=== PATIENT | male | born 1960 | race American Indian/Alaskan Native ===

== ENCOUNTER 2017-06-06 19:30 | Inpatient (IN) | payer BC ==
[2017-06-06] MEDS ORDERED: ASPIRIN ONE (19:41)
[2017-06-06] MEDS ORDERED: ZOFRAN ONE (19:41)
[2017-06-06] MEDS ORDERED: LOPRESSOR IV ONE ×2 (19:41→19:48)
[2017-06-06] MEDS ORDERED: MORPHINE ONE (19:41)
--- NOTE | 2017-06-06 19:41 | Emergency Department Report ---
ED Chest Pain HPI - General Stated Complaint: CHEST PAIN Time Seen by Provider: 06/06/17 19:38 - History of Present Illness Initial Comments: This is a 57 year-old male presents to the emergency department , being driven up to the ambulance bay, with a complaint of left-sided chest pain that started about 5 minutes prior to presentation. He did not take anything for her symptoms on presentation. His past medical history is significant for hypertension and tobacco abuse. He denies any illicit drug use. He has a primary care physician. No recent travel or sick contacts at home. He complains of some associated shortness of breath, nausea and vomiting. - Related Data Home Medications Medication Instructions Recorded Confirmed Last Taken Valsartan/Hydrochlorothiazide 1 each PO QDAY 06/06/17 06/06/17 06/06/17 [Valsartan-Hctz 320-25 mg Tab] Allergies Allergy/AdvReac Type Severity Reaction Status Date / Time No Known Allergies Allergy Unverified 04/08/13 07:52 Heart Score - HEART Score History: Highly suspicious EKG: Normal Age: 45-65 Risk factors: 1-2 risk factors Troponin: < normal limit HEART Score: 4 - Critical Actions Critical Actions: 4-6 pts:12-16.6% risk of adverse cardiac event. Should be admitted ED Review of Systems ROS: Stated complaint: CHEST PAIN Other details as noted in HPI Comment: All other systems reviewed and negative Constitutional: denies: chills, fever Eyes: denies: eye pain, eye discharge, vision change ENT: denies: ear pain, throat pain Respiratory: shortness of breath. denies: cough Cardiovascular: chest pain. denies: palpitations Gastrointestinal: nausea, vomiting. denies: abdominal pain Genitourinary: denies: urgency, dysuria Musculoskeletal: denies: back pain, joint swelling, arthralgia Skin: denies: rash, lesions Neurological: denies: headache, weakness, paresthesias ED Past Medical Hx - Past Medical History Hx Hypertension: Yes - Surgical History Additional Surgical History: right arm surgery - Social History Smoking Status: Current Every Day Smoker Substance Use Type: Alcohol - Medications Home Medications: Home Medications Medication Instructions Recorded Confirmed Last Taken Type Valsartan/Hydrochlorothiazide 1 each PO QDAY 06/06/17 06/06/17 06/06/17 History [Valsartan-Hctz 320-25 mg Tab] ED Physical Exam - Other Other exam information: GENERAL: The patient is in a moderate amount of pain but otherwise awake and alert. Well developed. Well nourished. HENT: Normocephalic. Atraumatic. Patient has moist mucous membranes. EYES: Extraocular motions are intact. Pupils equal reactive to light bilaterally. NECK: Supple. Skin is warm and dry. CHEST/LUNGS: Clear to auscultation. There is no respiratory distress noted. Chest pain is not reproducible to palpation of chest wall. HEART/CARDIOVASCULAR: Regular. There is no tachycardia. There is no gallop rub or murmur. ABDOMEN: Abdomen is soft, nontender. Patient has normal bowel sounds. There is no abdominal distention. SKIN: Skin is warm and dry. NEURO: The patient is awake, alert, and oriented. The patient is cooperative. The patient has no focal neurologic deficits. The patient has normal speech. MUSCULOSKELETAL: There is no tenderness or deformity. There is no limitation range of motion. There is no evidence of acute injury. ED Course Vital Signs 06/06/17 06/06/17 06/06/17 19:35 19:50 20:12 Temperature Pulse Rate 122 H 122 H 83 Respiratory 20 14 Rate Blood Pressure 207/120 207/120 Blood Pressure 185/119 [Right] O2 Sat by Pulse 99 99 Oximetry 06/06/17 06/06/17 06/06/17 20:30 20:50 20:55 Temperature Pulse Rate 91 H 82 86 Respiratory 19 Rate Blood Pressure 173/116 170/122 Blood Pressure 165/120 [Right] O2 Sat by Pulse 100 Oximetry 06/06/17 06/06/17 06/06/17 21:00 21:11 21:20 Temperature Pulse Rate 84 80 77 Respiratory 12 15 Rate Blood Pressure 157/108 Blood Pressure 147/114 130/90 [Right] O2 Sat by Pulse 99 100 Oximetry 06/06/17 06/06/17 21:41 22:53 Temperature 98.3 F Pulse Rate 79 82 Respiratory 14 20 Rate Blood Pressure Blood Pressure 112/79 126/82 [Right] O2 Sat by Pulse 100 99 Oximetry - Consultations Consultation #1: I spoke to the copier technician on-call, Dr. June, who was gracious enough to look at the original EKG and did not feel that it met criteria for STEMI and did not need any urgent heart catheterization. 06/06/17 19:40 BRIANNA score - Brianna Score Age > 65: (0) No Aspirin use within the Past 7 Days: (0) No 3 or more CAD Risk Factors: (0) No 2 or more Angina events in past 24 hrs: (0) No Known CAD with more than 50% Stenosis: (0) No Elevated Cardiac Markers: (0) No ST Deviation Greater than 0.5mm: (0) No BRIANNA Score: 0 ED Medical Decision Making - Lab Data Result diagrams: 06/06/17 19:30 06/06/17 19:30 - EKG Data -: EKG Interpreted by Me EKG shows normal: sinus rhythm, axis, intervals, QRS complexes (LVH), ST-T waves (nonspecific ST-T waves) Rate: tachycardia (102 bpm) - EKG Data When compared to previous EKG there are: previous EKG unavailable Interpretation: LVH (with mild tachycardia) - Radiology Data Radiology results: image reviewed interpreted by me: Chest x-ray does not show any acute process. There are no pleural effusions, obvious pneumonia and there is no pneumothorax. - Medical Decision Making This patient presented with acute left-sided chest pain. He was given morphine , aspirin, Zofran and Lopressor. His blood pressure came down to a more reasonable level but was still elevated. His chest pain later came back and he required a sublingual nitroglycerin but that did not help. The pain appears to be intermittent as there are times where he appears to resting comfortably and other times where he is complaining of increased pain. His EKG showed some LVH with mild tachycardia but otherwise no signs of ST elevation WI or dysrhythmia. Labs have been mostly unremarkable including negative troponin and a negative d-dimer. He will certainly need serial troponins, further evaluation and probable cardio consultation. He has been accepted for admission by the hospitalist, Dr. De. - Differential Diagnosis WI, PE, pneumonia, costochondritis, GERD Critical Care Time: No Critical care attestation.: If time is entered above; I have spent that time in minutes in the direct care of this critically ill patient, excluding procedure time. ED Disposition Clinical Impression: Acute chest pain, Ruled out for myocardial infarction, Hypertensive urgency Disposition: OP ADMIT IP TO THIS HOSP Is pt being admited?: Yes Condition: Stable Time of Disposition: 00:49
[2017-06-06 19:45] LABS: Hematocrit 41.1 % (35.5-45.6); Hemoglobin 13.6 gm/dl (11.8-15.2); Mean Corpuscular HGB Conc 33 % (32-34); Mean Corpuscular Hemoglobin 32 pg (28-32); Mean Corpuscular Volume 96 fl (84-94); Platelet Count 186 K/mm3 (140-440); Red Blood Count 4.28 M/mm3 (3.65-5.03); White Blood Count 8.5 K/mm3 (4.5-11.0)
[2017-06-06] MEDS ORDERED: MORPHINE IV ONE (19:48)
[2017-06-06] MEDS ORDERED: ASPIRIN PO ONE (19:48)
[2017-06-06] MEDS ORDERED: ZOFRAN IV ONE ×2 (19:48→20:07)
[2017-06-06 19:57] LABS: Anion Gap 20 mmol/L; BUN/Creatinine Ratio 16; Blood Urea Nitrogen 14 mg/dL (9-20); Calcium 8.7 mg/dL (8.4-10.2); Carbon Dioxide 21 mmol/L (22-30); Glucose 107 mg/dL (75-100); Potassium 3.9 mmol/L (3.6-5.0); Sodium 139 mmol/L (137-145)
[2017-06-06 20:02] LABS: INR 0.86 (0.87-1.13); Partial Thromboplastin Time 26.2 Sec. (24.2-36.6)
[2017-06-06] MEDS: NITROSTAT SL PRN ×3 (20:50→21:00)
[2017-06-06 21:08] LABS: Blastocytes % (Manual) 0 %; RBC Morphology Normal
[2017-06-06 21:09] LABS: Diff Status Complete
--- NOTE | 2017-06-06 22:11 | History and Physical Report ---
History of Present Illness Date of examination: 06/06/17 History of present illness: 57-year-old man with history of hypertension comes emergency room with complaints of substernal pain which started last night. He describes as a sharp pain, intermittent every 5 minutes, intensity 5/10, no radiation, he cannot identify exacerbating or relieving factors. denies shortness of breath, nausea vomiting, diaphoresis or palpitation. Had a stress test in January which was negative Review Of Systems: Constitutional: no weight loss Ears, eyes, nose, mouth and throat: no nasal congestion, no nasal discharge, no sinus pressure, blurry vision, diplopia Neck: No neck pain or rigidity. Cardiovascular no , orthopnea, palpitations Respiratory: No cough Gastrointestinal: no abdominal pain, hematochezia Genitourinary : no dysuria, frequency , hematuria Musculoskeletal: no muscle ache Integumentary: no rash, no pruritis Neurological: no parathesias, focal weakness Endocrine: no cold or heat intolerance, no polyuria or polydipsia Hematologic/Lymphatic: no easy bruising, no easy bleeding, no gland swelling Allergic/Immunologic: no urticaria, no angioedema. PAST SURGICAL HISTORY: None SOCIAL HISTORY:Social alcohol, tobacco , no drug FAMILY HISTORY: Hypertension Medications and Allergies Allergies Allergy/AdvReac Type Severity Reaction Status Date / Time No Known Allergies Allergy Unverified 04/08/13 07:52 Home Medications Medication Instructions Recorded Confirmed Last Taken Type Valsartan/Hydrochlorothiazide 1 each PO QDAY 06/06/17 06/06/17 06/06/17 History [Valsartan-Hctz 320-25 mg Tab] Active Meds: Active Medications Nitroglycerin (Nitrostat) 0.4 mg SL .Q5MIN PRN PRN Reason: Chest Pain Last Admin: 06/06/17 21:00 Dose: 0.4 mg Exam - Physical Exam Narrative exam: Gen. appearance: Patient lying in bed in no acute distress HEENT: Normocephalic/atraumatic, pupils equal round reactive to light, extra alkaline movement intact, no scleral icterus, no JVD or thyromegaly or nodule, neck is supple, mucous membrane moist, no erythema or exudate Heart: S1-S2, regular rate and rhythm Lungs: Clear to auscultation bilateral breathing comfortable Abdomen: Positive bowel sounds, nontender, nondistended, no organomegaly Extremities: No edema, cyanosis, clubbing Neuro:: Oriented 3 , cranial nerves II-12 intact, speech, motor intact Skin: No rash, nodules, warm dry - Constitutional Vitals: Temp Pulse Resp BP Pulse Ox 98.3 F 79 14 112/79 100 06/06/17 21:41 06/06/17 21:41 06/06/17 21:41 06/06/17 21:41 06/06/17 21:41 Results - Labs CBC & Chem 7: 06/06/17 19:30 06/06/17 19:30 Labs: Abnormal lab results 06/06/17 06/06/17 06/06/17 Range/Units 19:30 19:30 19:30 MCV 96 H (84-94) fl RDW 13.0 L (13.2-15.2) % Seg Neuts % (Manual) 33.0 L (40.0-70.0) % Lymphocytes % (Manual) 55.0 H (13.4-35.0) % Monocytes % (Manual) 9.0 H (0.0-7.3) % PT 12.1 L (12.2-14.9) Sec. INR 0.86 L (0.87-1.13) Carbon Dioxide 21 L (22-30) mmol/L Glucose 107 H (75-100) mg/dL - Imaging and Cardiology EKG: image reviewed Chest x-ray: image reviewed Assessment and Plan Assessment Chest pain Hypertension Plan Admit to medicine Check cardiac enzymes, cardiology consult IV morphine, aspirin Continue outpatient medication comes start DVT prophylaxis
[2017-06-06 23:12] LABS: Urine Drugs of Abuse Note Disclamer
[2017-06-06 23:25] LABS: Bilirubin,Urine NEG (Negative); Blood,Urine NEG (Negative); Ketones,Urine NEG (Negative); Leukocyte Esterase,Urine NEG (Negative); Nitrite,Urine NEG (Negative); Protein,Urine <15 mg/dL mg/dL (Negative); RBC,Urine < 1.0 /HPF (0.0-6.0); Urobilinogen,Urine < 2.0 mg/dL (<2.0)
[2017-06-06] MEDS ORDERED: TYLENOL PO PRN (23:26)
[2017-06-06] MEDS ORDERED: ZOFRAN IV PRN (23:26)
[2017-06-06] MEDS ORDERED: MILK OF MAGNESIA PO PRN (23:26)
[2017-06-06] MEDS ORDERED: MORPHINE IV PRN (23:26)
[2017-06-06] MEDS ORDERED: DULCOLAX PR PRN (23:26)
[2017-06-06 23:30] LABS: WBC,Urine < 1.0 /HPF (0.0-6.0)
--- NOTE | 2017-06-06 23:48 | XRay Report ---
FINAL REPORT PROCEDURE: Chest. TECHNIQUE: Portable AP view. HISTORY: Chest pain. COMPARISON: No prior studies are available for comparison. FINDINGS: The heart and mediastinum appear normal. The lungs are clear and well expanded. There are no pleural effusions. The soft tissues and regional skeleton are unremarkable. IMPRESSION: Negative portable chest.
[2017-06-07 00:35] LABS: Creatine Kinase MB 4.6 ng/mL (0.0-4.0)
[2017-06-07 00:38] LABS: Creatine Kinase 483 units/L (55-170)
[2017-06-07 04:39] LABS: Basophils % (Auto) 0.5 % (0.0-1.8); Eosinophils % (Auto) 1.5 % (0.0-4.3); Hematocrit 36.1 % (35.5-45.6); Hemoglobin 12.3 gm/dl (11.8-15.2); Mean Corpuscular HGB Conc 34 % (32-34); Mean Corpuscular Hemoglobin 33 pg (28-32); Mean Corpuscular Volume 96 fl (84-94); Platelet Count 156 K/mm3 (140-440); Red Blood Count 3.77 M/mm3 (3.65-5.03); Red Cell Distribution Width 13.1 % (13.2-15.2); White Blood Count 5.9 K/mm3 (4.5-11.0)
[2017-06-07 05:06] LABS: Anion Gap 20 mmol/L; BUN/Creatinine Ratio 18; Blood Urea Nitrogen 14 mg/dL (9-20); Calcium 8.5 mg/dL (8.4-10.2); Carbon Dioxide 20 mmol/L (22-30); Chloride 103.9 mmol/L (98-107); Glucose 103 mg/dL (75-100); Potassium 3.7 mmol/L (3.6-5.0); Sodium 140 mmol/L (137-145)
[2017-06-07 05:08] LABS: Creatine Kinase 476 units/L (55-170); Creatine Kinase MB 4.6 ng/mL (0.0-4.0)
--- NOTE | 2017-06-07 09:28 | Consultation ---
History of Present Illness Consult date: 06/07/17 Consult reason: chest pain History of present illness: 57 year old -[place] male who is presenting with left precordial chest pain. Pain is nonexertional and this of moderate intensity not associated with any other symptoms. He claims he had a stress test done in January of this year but cannot recollect where it was done nor does he have the report but was told it was normal. Past History Past Medical History: hypertension Past Surgical History: No surgical history Social history: no significant social history Family history: no significant family history Medications and Allergies Allergies Allergy/AdvReac Type Severity Reaction Status Date / Time No Known Allergies Allergy Unverified 04/08/13 07:52 Home Medications Medication Instructions Recorded Confirmed Last Taken Type Valsartan/Hydrochlorothiazide 1 each PO QDAY 06/06/17 06/06/17 06/06/17 History [Valsartan-Hctz 320-25 mg Tab] Active Meds: Active Medications Acetaminophen (Tylenol) 650 mg PO Q4H PRN PRN Reason: Pain MILD(1-3)/Fever >100.5/FAITH Aspirin (Baby Aspirin) 81 mg PO QDAY [facility] Bisacodyl (Dulcolax) 10 mg RI QDAY PRN PRN Reason: Constipation unrelieved by MOM Enoxaparin Sodium (Lovenox) 40 mg SUB-Q QDAY [facility] Hydrochlorothiazide (Hctz) 25 mg PO QDAY [facility] Magnesium Hydroxide (Milk Of Magnesia) 30 ml PO Q4H PRN PRN Reason: Constipation Morphine Sulfate (Morphine) 2 mg IV Q4H PRN PRN Reason: Pain, Moderate (4-6) Nitroglycerin (Nitrostat) 0.4 mg SL .Q5MIN PRN PRN Reason: Chest Pain Last Admin: 06/06/17 21:00 Dose: 0.4 mg Ondansetron HCl (Zofran) 4 mg IV Q8H PRN PRN Reason: N/V unrelieved by Reglan Valsartan (Diovan) 320 mg PO QDAY [facility] Physical Examination Vital Signs Pulse Resp BP Pulse Ox 122 H 20 207/120 99 06/06/17 19:35 06/06/17 19:35 06/06/17 19:35 06/06/17 19:35 General appearance: no acute distress, well-nourished HEENT: Positive: PERRL, Mucus Membranes Moist Neck: Positive: neck supple, trachea midline Cardiac: Positive: Reg Rate and Rhythm, S1/S2. Negative: Audible Murmur Lungs: Positive: clear to auscultation, Normal Breath Sounds Neuro: Positive: Grossly Intact Abdomen: Positive: Soft, Active Bowel Sounds. Negative: Tender, Distended Male genitourinary: Positive: normal Skin: Positive: Clear Incision: Cardiac Cath Site Musculoskeletal: No Pain, Normal Range of Motion Extremities: Present: normal. Absent: edema Results 06/07/17 04:25 06/07/17 04:25 Cardiac Enzymes 06/06/17 06/07/17 Range/Units 23:44 04:25 CK-MB (CK-2) 4.6 H 4.6 H (0.0-4.0) ng/mL Coagulation 06/06/17 Range/Units 19:30 PT 12.1 L (12.2-14.9) Sec. INR 0.86 L (0.87-1.13) APTT 26.2 (24.2-36.6) Sec. CBC 06/06/17 06/07/17 Range/Units 19:30 04:25 WBC 8.5 5.9 (4.5-11.0) K/mm3 RBC 4.28 3.77 (3.65-5.03) M/mm3 Hgb 13.6 12.3 (11.8-15.2) gm/dl Hct 41.1 36.1 (35.5-45.6) % Plt Count 186 156 (140-440) K/mm3 Lymph # Buttonhole Tacker 2.4 [place] # 0.7 (0.0-0.8) K/mm3 Eos # 0.1 (0.0-0.4) K/mm3 Baso # 0.0 (0.0-0.1) K/mm3 Comprehensive Metabolic Panel 06/06/17 06/07/17 Range/Units 19:30 04:25 Sodium 139 140 (137-145) mmol/L Potassium 3.9 3.7 (3.6-5.0) mmol/L Chloride 102.0 103.9 (98-107) mmol/L Carbon Dioxide 21 L 20 L (22-30) mmol/L BUN 14 14 (9-20) mg/dL Creatinine 0.9 0.8 (0.8-1.5) mg/dL Glucose 107 H 103 H (75-100) mg/dL Calcium 8.7 8.5 (8.4-10.2) mg/dL - EKG Interpretation EKG: sinus rhythm EKG interpretations - Telemetry EKG Rhythm: Sinus Rhythm Assessment and Plan 1. Atypical chest pain 2. Essential hypertension Plan. Patient is currently chest pain-free. Serial cardiac isoenzymes have been negative low pretest probability of ischemic coronary artery disease. Check lipid profile repeat stress test and check echocardiogram.
[2017-06-07] MEDS: LOVENOX SUB-Q SCH (16:13)
[2017-06-07] MEDS: HCTZ PO SCH (16:14)
[2017-06-07] MEDS: BABY ASPIRIN PO SCH (16:15)
[2017-06-07] MEDS: DIOVAN PO SCH (16:15)
--- NOTE | 2017-06-07 17:49 | Progress Note ---
Assessment and Plan Assessment and plan: 57-year-old man with history of hypertension comes emergency room with complaints of substernal pain which started last night. He describes as a sharp pain, intermittent every 5 minutes, intensity 5/10, no radiation, he cannot identify exacerbating or relieving factors. denies shortness of breath, nausea vomiting, diaphoresis or palpitation. Had a stress test in January which was negative Atypical Chest pain-like a costochondritis Hypertension Plan Neurologic improvement noted will await stress test in a.m. if negative patient can be discharged. Check cardiac enzymes, IV morphine, aspirin Continue outpatient medication comes start DVT prophylaxis DVT and GI prophylaxis Plan discussed with the patient's family member who was present in the room History Interval history: Patient seen and examined and reports no focal chest pain this morning denies nausea, vomiting, diarrhea fever. Hospitalist Physical - Physical exam Narrative exam: VITAL SIGNS: Reviewed. GENERAL: The patient appeared well nourished and normally developed. Vital signs as documented. HEAD: No signs of head trauma. EYES: Pupils are equal. Extraocular motions intact. EARS: Hearing grossly intact. MOUTH: Oropharynx is normal. NECK: No adenopathy, no JVD. CHEST: Chest with clear breath sounds bilaterally. No wheezes, rales, or rhonchi. CARDIAC: Regular rate and rhythm. S1 and S2, without murmurs, gallops, or rubs. VASCULAR: No Edema. Peripheral pulses normal and equal in all extremities. ABDOMEN: Soft, without detectable tenderness. No sign of distention. No rebound or guarding, and no masses palpated. Bowel Sounds normal. MUSCULOSKELETAL: Good range of motion of all major joints. Extremities without clubbing, cyanosis or edema. NEUROLOGIC EXAM: Alert and oriented x 3. No focal sensory or strength deficits. Speech normal. Follows commands. PSYCHIATRIC: Mood normal. SKIN: No rash or lesions. - Constitutional Vitals: Temp Pulse Resp BP Pulse Ox 97.9 F 71 20 161/101 99 06/07/17 05:24 06/07/17 16:15 06/07/17 05:24 06/07/17 16:15 06/07/17 09:58 General appearance: Present: no acute distress, well-nourished Results - Labs CBC & Chem 7: 06/07/17 04:25 06/07/17 04:25 Labs: Laboratory Last Values WBC 5.9 K/mm3 (4.5-11.0) 06/07/17 04:25 RBC 3.77 M/mm3 (3.65-5.03) 06/07/17 04:25 Hgb 12.3 gm/dl (11.8-15.2) 06/07/17 04:25 Hct 36.1 % (35.5-45.6) 06/07/17 04:25 MCV 96 fl (84-94) H 06/07/17 04:25 MCH 33 pg (28-32) H 06/07/17 04:25 MCHC 34 % (32-34) 06/07/17 04:25 RDW 13.1 % (13.2-15.2) L 06/07/17 04:25 Plt Count 156 K/mm3 (140-440) 06/07/17 04:25 Lymph % (Auto) 41.4 % (13.4-35.0) H 06/07/17 04:25 [place] % (Auto) 12.1 % (0.0-7.3) H 06/07/17 04:25 Eos % (Auto) 1.5 % (0.0-4.3) 06/07/17 04:25 Baso % (Auto) 0.5 % (0.0-1.8) 06/07/17 04:25 Lymph # 2.4 K/mm3 (1.2-5.4) 06/07/17 04:25 [place] # 0.7 K/mm3 (0.0-0.8) 06/07/17 04:25 Eos # 0.1 K/mm3 (0.0-0.4) 06/07/17 04:25 Baso # 0.0 K/mm3 (0.0-0.1) 06/07/17 04:25 Add Manual Diff Complete 06/06/17 19:30 Total Counted 100 06/06/17 19:30 Seg Neutrophils % 44.5 % (40.0-70.0) 06/07/17 04:25 Seg Neuts % (Manual) 33.0 % (40.0-70.0) L 06/06/17 19:30 Band Neutrophils % 1.0 % 06/06/17 19:30 Lymphocytes % (Manual) 55.0 % (13.4-35.0) H 06/06/17 19:30 Reactive Lymphs % (Man) 0 % 06/06/17 19:30 Monocytes % (Manual) 9.0 % (0.0-7.3) H 06/06/17 19:30 Eosinophils % (Manual) 1.0 % (0.0-4.3) 06/06/17 19:30 Basophils % (Manual) 1.0 % (0.0-1.8) 06/06/17 19:30 Metamyelocytes % 0 % 06/06/17 19:30 Myelocytes % 0 % 06/06/17 19:30 Promyelocytes % 0 % 06/06/17 19:30 Blast Cells % 0 % 06/06/17 19:30 Nucleated RBC % Not Reportable 06/06/17 19:30 Seg Neutrophils # 2.6 K/mm3 (1.8-7.7) 06/07/17 04:25 Seg Neutrophils # Man 2.8 K/mm3 (1.8-7.7) 06/06/17 19:30 Band Neutrophils # 0.1 K/mm3 06/06/17 19:30 Lymphocytes # (Manual) 4.7 K/mm3 (1.2-5.4) 06/06/17 19:30 Abs React Lymphs (Man) 0.0 K/mm3 06/06/17 19:30 Monocytes # (Manual) 0.8 K/mm3 (0.0-0.8) 06/06/17 19:30 Eosinophils # (Manual) 0.1 K/mm3 (0.0-0.4) 06/06/17 19:30 Basophils # (Manual) 0.1 K/mm3 (0.0-0.1) 06/06/17 19:30 Metamyelocytes # 0.0 K/mm3 06/06/17 19:30 Myelocytes # 0.0 K/mm3 06/06/17 19:30 Promyelocytes # 0.0 K/mm3 06/06/17 19:30 Blast Cells # 0.0 K/mm3 06/06/17 19:30 WBC Morphology Not Reportable 06/06/17 19:30 Hypersegmented Neuts Not Reportable 06/06/17 19:30 Hyposegmented Neuts Not Reportable 06/06/17 19:30 Hypogranular Neuts Not Reportable 06/06/17 19:30 Smudge Cells Not Reportable 06/06/17 19:30 Toxic Granulation Not Reportable 06/06/17 19:30 Toxic Vacuolation Not Reportable 06/06/17 19:30 Dohle Bodies Not Reportable 06/06/17 19:30 Pelger-Huet Anomaly Not Reportable 06/06/17 19:30 Tigist Rods Not Reportable 06/06/17 19:30 Platelet Estimate Appears normal 06/06/17 19:30 Clumped Platelets Not Reportable 06/06/17 19:30 Plt Clumps, EDTA Not Reportable 06/06/17 19:30 Large Platelets Not Reportable 06/06/17 19:30 Giant Platelets Not Reportable 06/06/17 19:30 Platelet Satelliting Not Reportable 06/06/17 19:30 Plt Morphology Comment Not Reportable 06/06/17 19:30 RBC Morphology Normal 06/06/17 19:30 Dimorphic RBCs Not Reportable 06/06/17 19:30 Polychromasia Not Reportable 06/06/17 19:30 Hypochromasia Not Reportable 06/06/17 19:30 Poikilocytosis Not Reportable 06/06/17 19:30 Anisocytosis Not Reportable 06/06/17 19:30 Microcytosis Not Reportable 06/06/17 19:30 Macrocytosis Not Reportable 06/06/17 19:30 Spherocytes Not Reportable 06/06/17 19:30 Pappenheimer Bodies Not Reportable 06/06/17 19:30 Sickle Cells Not Reportable 06/06/17 19:30 Target Cells Not Reportable 06/06/17 19:30 Tear Drop Cells Not Reportable 06/06/17 19:30 Ovalocytes Not Reportable 06/06/17 19:30 Helmet Cells Not Reportable 06/06/17 19:30 Lynch-[place] Bodies Not Reportable 06/06/17 19:30 [place] Rings Not Reportable 06/06/17 19:30 Kristen Cells Not Reportable 06/06/17 19:30 Bite Cells Not Reportable 06/06/17 19:30 Crenated Cell Not Reportable 06/06/17 19:30 Elliptocytes Not Reportable 06/06/17 19:30 Acanthocytes (Spur) Not Reportable 06/06/17 19:30 Rouleaux Not Reportable 06/06/17 19:30 Hemoglobin C Crystals Not Reportable 06/06/17 19:30 Schistocytes Not Reportable 06/06/17 19:30 Malaria parasites Not Reportable 06/06/17 19:30 Haider Bodies Not Reportable 06/06/17 19:30 Hem Pathologist Commnt No 06/06/17 19:30 PT 12.1 Sec. (12.2-14.9) L 06/06/17 19:30 INR 0.86 (0.87-1.13) L 06/06/17 19:30 APTT 26.2 Sec. (24.2-36.6) 06/06/17 19:30 D-Dimer < 135.00 ng/mlDDU (0-234) 06/06/17 19:30 Sodium 140 mmol/L (137-145) 06/07/17 04:25 Potassium 3.7 mmol/L (3.6-5.0) 06/07/17 04:25 Chloride 103.9 mmol/L (98-107) 06/07/17 04:25 Carbon Dioxide 20 mmol/L (22-30) L 06/07/17 04:25 Anion Gap 20 mmol/L 06/07/17 04:25 BUN 14 mg/dL (9-20) 06/07/17 04:25 Creatinine 0.8 mg/dL (0.8-1.5) 06/07/17 04:25 Estimated GFR > 60 ml/min 06/07/17 04:25 BUN/Creatinine Ratio 18 % 06/07/17 04:25 Glucose 103 mg/dL (75-100) H 06/07/17 04:25 Calcium 8.5 mg/dL (8.4-10.2) 06/07/17 04:25 Total Creatine Kinase 476 units/L (55-170) H 06/07/17 04:25 CK-MB (CK-2) 4.6 ng/mL (0.0-4.0) H 06/07/17 04:25 CK-MB (CK-2) Rel Index 0.9 (0-4) 06/07/17 04:25 Troponin T < 0.010 ng/mL (0.00-0.029) 06/07/17 04:25 Urine Color Red (Yellow) 06/06/17 22:55 Urine Turbidity Clear (Clear) 06/06/17 22:55 Urine pH 5.0 (5.0-7.0) 06/06/17 22:55 Ur Specific Joy 1.000 (1.003-1.030) L 06/06/17 22:55 Urine Protein <15 mg/dl mg/dL (Negative) 06/06/17 22:55 Urine Glucose (UA) Neg mg/dL (Negative) 06/06/17 22:55 Urine Ketones Neg mg/dL (Negative) 06/06/17 22:55 Urine Blood Neg (Negative) 06/06/17 22:55 Urine Nitrite Neg (Negative) 06/06/17 22:55 Urine Bilirubin Neg (Negative) 06/06/17 22:55 Urine Urobilinogen < 2.0 mg/dL (<2.0) 06/06/17 22:55 Ur Leukocyte Esterase Neg (Negative) 06/06/17 22:55 Urine WBC (Auto) < 1.0 /HPF (0.0-6.0) 06/06/17 22:55 Urine RBC (Auto) < 1.0 /HPF (0.0-6.0) 06/06/17 22:55 Urine Opiates Screen Presumptive negative 06/06/17 22:55 Urine Methadone Screen Presumptive negative 06/06/17 22:55 Ur Barbiturates Screen Presumptive negative 06/06/17 22:55 Ur Phencyclidine Scrn Presumptive negative 06/06/17 22:55 Ur Amphetamines Screen Presumptive negative 06/06/17 22:55 U Benzodiazepines Scrn Presumptive negative 06/06/17 22:55 Urine Cocaine Screen Presumptive negative 06/06/17 22:55 U Marijuana (THC) Screen Presumptive negative 06/06/17 22:55 Drugs of Abuse Note Disclamer 06/06/17 22:55 Blood Type A POSITIVE 06/06/17 19:30 Antibody Screen Negative 06/06/17 19:30
[2017-06-08] MEDS ORDERED: LEXISCAN IV ONE ×2 (08:02→08:09)
[2017-06-08] MEDS: HCTZ PO SCH (09:17)
[2017-06-08] MEDS: BABY ASPIRIN PO SCH (09:18)
[2017-06-08] MEDS: LOVENOX SUB-Q SCH (09:19)
--- NOTE | 2017-06-08 09:36 | Progress Note ---
Assessment and Plan 1. Atypical chest pain 2. Essential hypertension Plan. Patient is stable and will have a stress lexiscan MPI today.. Subjective Date of service: 06/08/17 Principal diagnosis: chest pains Interval history: No cardiac symptoms. Objective Vital Signs Temp Pulse Resp BP Pulse Ox 06/08/17 09:08 99 06/08/17 04:57 97.4 F L 06/08/17 04:36 60 06/08/17 04:15 20 138/97 06/08/17 01:12 98.2 F 06/07/17 23:40 18 131/92 06/07/17 19:27 98.8 F 60 06/07/17 19:24 18 162/100 06/07/17 18:47 67 06/07/17 16:15 71 161/101 06/07/17 16:14 98.2 F 18 161/101 06/07/17 12:41 97.7 F 75 18 182/111 98 06/07/17 09:58 99 - Physical Examination HEENT: Positive: PERRL, Mucus Membranes Moist Neck: Positive: neck supple, trachea midline Cardiac: Positive: Regular Rate, S1/S2, S4, PMI, Laterally Displaced Lungs: Positive: clear to auscultation, No Wheeze, Rales, Rhonchi Neuro: Positive: Grossly Intact Abdomen: Positive: Soft, Active Bowel Sounds. Negative: Tender, Distended Skin: Positive: Clear Incision: Cardiac Cath Site Musculoskeletal: No Pain, Normal Range of Motion Extremities: Present: normal. Absent: edema - Imaging and Cardiology EKG: image reviewed - Telemetry EKG Rhythm: Sinus Rhythm
[2017-06-08] MEDS: DIOVAN PO SCH (12:17)
[2017-06-08 12:19] VITALS: BP 153/100
--- NOTE | 2017-06-08 16:38 | Discharge Summary ---
Providers - Providers Date of Admission: 06/06/17 22:10 Date of discharge: 06/08/17 Attending physician: PAXTON TAYLOR MD 06/06/17 23:26 Consult to Physician [CONS] Routine Consulting Provider: CASSANDRA OCASIO Reason For Exam: cp Place consult to:: aury lezama Notified:: y Comment:: added to list Primary care physician: [employer] Hospitalization Condition: Stable Hospital course: Assessment and Plan 57-year-old man with history of hypertension comes emergency room with complaints of substernal pain which started 2 nights ago.. He describes as a sharp pain, intermittent every 5 minutes, intensity 5/10, no radiation, he cannot identify exacerbating or relieving factors. denies shortness of breath , nausea vomiting, diaphoresis or palpitation. Had a stress test in January which was negative Stress test negative this visit Costochondritis Hypertension Plan Neurologic improvement noted will await stress test in a.m. if negative patient can be discharged. Check cardiac enzymes, IV morphine, aspirin Continue outpatient medication comes start DVT prophylaxis DVT and GI prophylaxis Plan discussed with the patient's family member who was present in the room To f/u with Aury Lezama in one week Disposition: DC-01 TO HOME OR SELFCARE Time spent for discharge: 33 minutes Core Measure Documentation - Palliative Care Palliative Care/ Comfort Measures: Not Applicable - Core Measures Any of the following diagnoses?: none Exam - Constitutional Vitals: Temp Pulse Resp BP Pulse Ox 97.4 F L 50 L 20 153/100 99 06/08/17 04:57 06/08/17 13:36 06/08/17 04:15 06/08/17 12:17 06/08/17 09:08 General appearance: Present: no acute distress, well-nourished - EENT Eyes: Present: PERRL ENT: hearing intact, clear oral mucosa - Neck Neck: Present: supple, normal ROM - Respiratory Respiratory effort: normal Respiratory: bilateral: CTA - Cardiovascular Heart rate: 70 Rhythm: regular Heart Sounds: Present: S1 & S2. Absent: rub, click - Extremities Extremities: no ischemia, pulses intact, pulses symmetrical, No edema Peripheral Pulses: within normal limits - Abdominal General gastrointestinal: Present: soft, non-tender, non-distended, normal bowel sounds Male genitourinary: Present: normal - Rectal Rectal Exam: deferred - Integumentary Integumentary: Present: clear, warm, dry - Musculoskeletal Musculoskeletal: gait normal, strength equal bilaterally - Psychiatric Psychiatric: appropriate mood/affect, intact judgment & insight - Neurologic Neurologic: CNII-XII intact, moves all extremities - Allied Health Allied health notes reviewed: nursing, case management Plan Activity: no restrictions Diet: low fat, low salt, low carbohydrate Special Instructions: restrict fluid intake to (1500 ml) Follow up with: PRIMARY MD JOHN [Primary Care Provider] - 7 Days CASSANDRA OCASIO MD [Staff Physician] - 7 Days Prescriptions: Potassium Chloride [K-Dur] 10 meq PO QDAY #30 tablet Valsartan/Hydrochlorothiazide [Valsartan-Hctz 320-25 mg Tab] 1 each PO QDAY #30 tablet
--- NOTE | 2017-06-08 20:19 | Treadmill Report ---
THALLIUM STRESS TEST LEFT VENTRICLE: Left ventricular chamber size is within normal limits. Perfusion study demonstrates mild diaphragmatic attenuation artifact, otherwise homogeneous uptake of the tracer in all segments, no significant perfusion defects identified. Gated analysis is suboptimal. CONCLUSION: This is a normal myocardial perfusion study. Recommend clinical correlation and echocardiographic reassessment of left ventricular systolic function. JOB# [id number] CA/NTS
== END 2017-06-08 18:28 | disposition home or self-care (01) | DRG 206 ==
LOC: ED 19:30 → 4A 22:10
PROVIDERS: ADMIT Internal Medicine; ATTEND Internal Medicine
DX: M94.0 Chondrocostal junction syndrome [Tietze] (principal); I10 Essential (primary) hypertension; F17.200 Nicotine dependence, unspecified, uncomplicated; I16.0 Hypertensive urgency; Z79.899 Other long term (current) drug therapy; Z72.89 Other problems related to lifestyle; Z82.49 Family history of ischemic heart disease and other diseases of the circulatory system
CPT/HCPCS: 36415; 71010; 78452; 80048; 80307; 81001; 82550; 82553; 84484; 85007; 85025; 85379; 85610; 85730; 86850; 86900; 86901; 93005; 93010; 93017; 93306; 96374; 96375; 96376; A9502; J1650; J2270; J2405; J2785

== ENCOUNTER 2020-03-14 19:00 | Emergency (ER) | payer SELFPAY ==
[2020-03-14 20:21] LABS: Basophils % (Auto) 0.4 % (0.0-1.8); Eosinophils % (Auto) 0.5 % (0.0-4.3); Lymphocytes # (Auto) 2.2 K/mm3 (1.2-5.4); Lymphocytes % (Auto) 31.9 % (13.4-35.0); Mean Corpuscular HGB Conc 34 % (32-34); Mean Corpuscular Volume 99 fl (84-94); Monocytes # (Auto) 0.6 K/mm3 (0.0-0.8); Monocytes % (Auto) 8.5 % (0.0-7.3); Platelet Count 173 K/mm3 (140-440); Red Blood Count 4.13 M/mm3 (3.65-5.03); Red Cell Distribution Width 12.7 % (13.2-15.2)
[2020-03-14 20:30] LABS: INR 0.94 (0.87-1.13)
[2020-03-14 20:36] LABS: BUN/Creatinine Ratio 16; Blood Urea Nitrogen 14 mg/dL (9-20); Calcium 9.1 mg/dL (8.4-10.2); Hemolysis Index 6
--- NOTE | 2020-03-14 20:51 | XRay Report ---
XR chest routine 2V INDICATION / CLINICAL INFORMATION: chest pain COMPARISON: 06/06/2017 FINDINGS: SUPPORT DEVICES: None. HEART / MEDIASTINUM: No significant abnormality. LUNGS / PLEURA: Lungs are clear. Costophrenic sulci are sharp. No pneumothorax. ADDITIONAL FINDINGS: No significant additional findings. IMPRESSION: 1. No acute findings. Signer Name: Dennys Paez MD Signed: 03/14/2020 8:47 PM Workstation Name: [id number]
--- NOTE | 2020-03-14 21:09 | Emergency Department Report ---
ED Chest Pain HPI - General Chief Complaint: Chest Pain Stated Complaint: CHEST PAIN PUI?: No Time Seen by Provider: 03/14/20 21:02 Source: patient, EMS Mode of arrival: Stretcher Limitations: No Limitations - History of Present Illness Initial Comments: Chief complaint "I am going to be honest with you I have been smoking and d rinking." HPI: This is is a 60-year-old male with history of hypertension tobacco dependence who presents with right ankle pain leg pain radiating to his right chest. Sudden onset this afternoon. Sharp pain. No persistent chest pain. He now has pain in his right ankle radiating to the right leg. No shortness of breath. No fever. No sick contacts. No nausea vomiting. According to electronic medical record: Echocardiogram obtained June 2017: Mildly dilated left ventricular chamber, mild concentric LVH mildly decreased global left ventricular systolic function mild to moderate mitral regurgitation ejection fraction 40 to 45%, June 2017 normal myocardial perfusion study: Thallium stress test performed MD Complaint: chest pain -: Gradual, This afternoon Onset: during rest Pain Location: right chest Pain Radiation: other (Right lower extremity) Severity: moderate Severity scale (0 -10): 8 Quality: sharp Consistency: now resolved Improves With: nothing Worsens With: nothing Treatments Prior to Arrival: none - Related Data Previous Rx's Medication Instructions Recorded Last Taken Type Potassium Chloride [K-Dur] 10 meq PO QDAY #30 tablet 06/08/17 Unknown Rx Valsartan/Hydrochlorothiazide 1 each PO QDAY #30 tablet 06/08/17 Unknown Rx [Valsartan-Hctz 320-25 mg Tab] Allergies Allergy/AdvReac Type Severity Reaction Status Date / Time No Known Allergies Allergy Unverified 04/08/13 07:52 Heart Score - HEART Score History: Slightly suspicious EKG: Normal Age: 45-65 Risk factors: 1-2 risk factors Troponin: < normal limit HEART Score: 2 ED Review of Systems ROS: Stated complaint: CHEST PAIN Other details as noted in HPI Comment: All other systems reviewed and negative Constitutional: denies: fever, malaise Respiratory: denies: cough, shortness of breath Cardiovascular: chest pain Gastrointestinal: denies: abdominal pain, nausea, vomiting ED Past Medical Hx - Past Medical History Previous Medical History?: Yes Hx Hypertension: Yes - Surgical History Past Surgical History?: No Additional Surgical History: right arm surgery - Social History Smoking Status: Current Some Day Smoker Substance Use Type: Alcohol - Medications Home Medications: Home Medications Medication Instructions Recorded Confirmed Last Taken Type Potassium Chloride [K-Dur] 10 meq PO QDAY #30 tablet 06/08/17 Unknown Rx Valsartan/Hydrochlorothiazide 1 each PO QDAY #30 tablet 06/08/17 Unknown Rx [Valsartan-Hctz 320-25 mg Tab] ED Physical Exam - General Limitations: No Limitations General appearance: alert, in no apparent distress - Head Head exam: Present: atraumatic, normocephalic - Eye Eye exam: Present: normal appearance, conjunctival injection. Absent: scleral icterus - ENT ENT exam: Present: mucous membranes moist - Neck Neck exam: Present: normal inspection, full ROM - Respiratory Respiratory exam: Present: normal lung sounds bilaterally. Absent: respiratory distress, wheezes, rales, rhonchi - Cardiovascular Cardiovascular Exam: Present: regular rate, normal rhythm, normal heart sounds. Absent: systolic murmur, diastolic murmur, rubs, gallop - GI/Abdominal GI/Abdominal exam: Present: soft, normal bowel sounds. Absent: distended, guarding, rebound - Rectal Rectal exam: Present: deferred - Extremities Exam Extremities exam: Present: normal inspection - Back Exam Back exam: Present: normal inspection - Neurological Exam Neurological exam: Present: alert, oriented X3 - Psychiatric Psychiatric exam: Present: normal affect, normal mood - Skin Skin exam: Present: warm, dry, intact, normal color. Absent: rash ED Course Vital Signs 03/14/20 19:45 Temperature 98.2 F Pulse Rate 96 H Respiratory 14 Rate Blood Pressure 145/94 Blood Pressure 145/94 [Left] O2 Sat by Pulse 97 Oximetry BRIANNA score - Brianna Score Age > 65: (0) No Aspirin use within the Past 7 Days: (0) No 3 or more CAD Risk Factors: (0) No 2 or more Angina events in past 24 hrs: (0) No Known CAD with more than 50% Stenosis: (0) No Elevated Cardiac Markers: (0) No ST Deviation Greater than 0.5mm: (0) No BRIANNA Score: 0 ED Medical Decision Making - Lab Data Result diagrams: 03/14/20 20:06 03/14/20 20:06 Laboratory Results - last 24 hr 03/14/20 03/14/20 03/14/20 20:06 20:06 20:06 WBC 7.0 RBC 4.13 Hgb 14.0 Hct 41.0 MCV 99 H MCH 34 H MCHC 34 RDW 12.7 L Plt Count 173 Lymph % (Auto) 31.9 [place] % (Auto) 8.5 H Eos % (Auto) 0.5 Baso % (Auto) 0.4 Lymph # 2.2 [place] # 0.6 Eos # 0.0 Baso # 0.0 Seg Neutrophils % 58.7 Seg Neutrophils # 4.1 PT 12.7 INR 0.94 Sodium 135 L Potassium 3.7 Chloride 100.5 Carbon Dioxide 16 L Anion Gap 22 BUN 14 Creatinine 0.9 Estimated GFR > 60 BUN/Creatinine Ratio 16 Glucose 105 H Calcium 9.1 Troponin T < 0.010 03/14/20 21:09 WBC RBC Hgb Hct MCV MCH MCHC RDW Plt Count Lymph % (Auto) [place] % (Auto) Eos % (Auto) Baso % (Auto) Lymph # [place] # Eos # Baso # Seg Neutrophils % Seg Neutrophils # PT INR Sodium Potassium Chloride Carbon Dioxide Anion Gap BUN Creatinine Estimated GFR BUN/Creatinine Ratio Glucose Calcium Troponin T < 0.010 - EKG Data EKG shows normal: sinus rhythm, axis, intervals, ST-T waves Rate: normal - EKG Data Interpretation: LVH 03/14/20 21:08 EKG obtained at 20 00 EKG obtained by mo Normal sinus rhythm rate 85 bpm normal axis normal intervals no ST elevation nonischemic T wave pattern - Radiology Data Radiology results: report reviewed Chest radiograph PA lateral: No acute findings according to radiology impression - Medical Decision Making [facility] presents with right leg pain right chest pain gradual onset this afternoon. Normal physical exam. I do not suspect DVT. No risk factors for VTE. Heart score is 2. No evidence of pneumothorax or pneumonia on chest radiograph. I do not detect signs of emergent condition such as aortic dissection pulmonary embolism or acute myocardial infarction Patient is jovial comfortable well-appearing nontoxic. Patient had normal myocardial perfusion scan 3 years ago here at this hospital. I have faxed referral request to [facility]. Troponin x2 ruled out myocardial infarction. Pain is atypical for acute coronary syndrome. I do not suspect DVT PE. Do not suspect dissection. No indication of trauma. Patient is discharged home. Critical care attestation.: If time is entered above; I have spent that time in minutes in the direct care of this critically ill patient, excluding procedure time. ED Disposition Clinical Impression: Right-sided chest pain, Right leg pain Disposition: TO HOME OR SELFCARE Is pt being admited?: No Does the pt Need Aspirin: No Condition: Stable Instructions: Chest Pain (ED) Referrals: JHON CARDONA MD [Staff Physician] - 2-3 Days Forms: Work/School Release Form(ED)
[2020-03-14] MEDS ORDERED: oxyCODONE /ACETAMINOPHEN 5-325MG TAB PO ONE (21:58)
[2020-03-14 23:00] VITALS: BP 129/87
== END 2020-03-14 22:15 | disposition home or self-care (01) ==
LOC: ED 19:00
DX: M25.571 Pain in right ankle and joints of right foot (principal); R07.89 Other chest pain; M79.604 Pain in right leg; I10 Essential (primary) hypertension; F17.200 Nicotine dependence, unspecified, uncomplicated; Z79.899 Other long term (current) drug therapy
CPT/HCPCS: 36415; 71046; 80048; 84484; 85025; 85610; 93005